=== PATIENT | male | born 1965 | race Caucasian/White ===

== ENCOUNTER 2016-11-23 08:43 | Observation (INO) | payer BC ==
--- NOTE | 2016-11-23 09:01 | PDOC ---
History of Present Illness - General Chief Complaint: CVA/TIA Stated Complaint: WEAKNESS X 1 DAY Time Seen by Provider: 11/23/16 09:01 History Source: Patient Exam Limitations: No Limitations - History of Present Illness Initial Comments: 50 yo M history EtOH abuse, hyperlipidemia presents with facial droop R face yesterday. He states that he was driving, felt a sudden change in the right side of his face. He states that he was able to move it, but his jaw felt different on the right side compared with the left. He also noted slurred speech , R arm numbness at the time. He states that he suspected that he had been drinking too much lately and did not thinking anything of it. However, when he arrived at work, his coworkers told him that his face was drooping on the right side and that he should seek evaluation. His face has improved since then, but he has persistent altered sensation to R arm. No difficulty walking. Speech has returned to baseline. NIH Stroke Scale - Last Known Well Date/Time & Onset Date Last Known Well: 11/22/16 - Initial Evaluation Level of consciousness: Alert Ask patient the month and their age: Answers both correctly Ask patient to open & close eyes; make fist and let go: Obeys both correctly Best gaze (horizontal eye movement): Normal Visual field testing: No visual field loss Facial paresis (Show teeth/raise eyebrows/close eyes tight): Normal symmetrical movement Motor Function: Left Arm: Normal Motor Function: Right Arm: Normal (extends arm 90 (or 45) degrees for 10 seconds without drift Motor Function: Left Leg: Normal (extends leg 30 degrees for 5 seconds without drift) Motor Function: Right Leg: Normal (extends leg 30 degrees for 5 seconds without drift) Limb Ataxia: No ataxia Sensory(Use pinprick test arms,legs,trunk,face/side to side): Normal Best language (Describe picture, name items, read sentences): No Aphasia Dysarthria (read several words): Normal articulation Extinction and Inattention: No abnormality - Total Score NIH Stroke Scale Score: 0 Past History - Past Medical History Allergies/Adverse Reactions: Allergies Allergy/AdvReac Type Severity Reaction Status Date / Time No Known Allergies Allergy Verified 11/23/16 08:47 Home Medications: Ambulatory Orders NK [No Known Home Medication] 12/29/15 Asthma: No COPD: No Diabetes: No HTN: No HIV: No Suicide Attempt (Hx): No Other medical history: MIGRAINES - Surgical History Abdominal Surgery: Yes Appendectomy: Yes - Immunization History Td Vaccination: Yes TDAP Vaccination: Yes Immunization Up to Date: Yes - Psycho/Social/Smoking Cessation Hx Anxiety: No Suicidal Ideation: No Smoking Status: Yes Smoking History: Former smoker Have you smoked in the past 12 months: No Number of Cigarettes Smoked Daily: 0 If you are a former smoker, when did you quit?: 26 YEARS AGO Information on smoking cessation initiated: No Hx Alcohol Use: No Drug/Substance Use Hx: No Substance Use Type: Alcohol Review of Systems - Review of Systems Able to Perform ROS?: Yes Comments:: GENERAL/CONSTITUTIONAL: No fever or chills. No weakness. HEAD, EYES, EARS, NOSE AND THROAT: No change in vision. No ear pain or discharge. No sore throat. CARDIOVASCULAR: No chest pain or shortness of breath. RESPIRATORY: No cough, wheezing, or hemoptysis. GASTROINTESTINAL: No nausea, vomiting, diarrhea or constipation. GENITOURINARY: No dysuria, frequency, or change in urination. MUSCULOSKELETAL: No joint or muscle swelling or pain. No neck or back pain. SKIN: No rash NEUROLOGIC: No headache, vertigo, loss of consciousness, or change in strength/ sensation. ENDOCRINE: No increased thirst. No abnormal weight change. HEMATOLOGIC/LYMPHATIC: No anemia, easy bleeding, or history of blood clots. ALLERGIC/IMMUNOLOGIC: No hives or skin allergy. *Physical Exam - Vital Signs Last Vital Signs Temp Pulse Resp BP Pulse Ox 98 F 90 18 145/90 100 11/23/16 08:45 11/23/16 08:45 11/23/16 08:45 11/23/16 08:45 11/23/16 08:45 - Physical Exam Comments: GENERAL: Awake, alert, and fully oriented, in no acute distress HEAD: No signs of trauma EYES: PERRLA, EOMI, sclera anicteric, conjunctiva clear ENT: Auricles normal inspection, hearing grossly normal, nares patent, oropharynx clear without exudates. Moist mucosa NECK: Normal ROM, supple, no lymphadenopathy, JVD, or masses LUNGS: Breath sounds equal, clear to auscultation bilaterally. No wheezes, and no crackles HEART: Regular rate and rhythm, normal S1 and S2, no murmurs, rubs or gallops ABDOMEN: Soft, nontender, normoactive bowel sounds. No guarding, no rebound. No masses EXTREMITIES: Normal range of motion, no edema. No clubbing or cyanosis. No cords, erythema, or tenderness NEUROLOGICAL: Cranial nerves II through XII grossly intact. RUE and RLE 4/5 strength. LUE and LLE 5/5 strength. Sensation intact. SKIN: Warm, Dry, normal turgor, no rashes or lesions noted. Heart Score/ECG Review - ECG Impressions Comment:: EKG read 09:53- NSR 81 bpm, no acute ST/T changes ED Treatment Course - LABORATORY CBC & Chemistry Diagram: 11/23/16 09:40 11/23/16 09:40 Medical Decision Making - Medical Decision Making NIHSS is 0, however, patient noted to have dec strength to RUE and RLE- 4/5. In light of his history of HL and EtOh abuse, will place on obs for TIA. *DC/Admit/Observation/Transfer Diagnosis at time of Disposition: TIA (transient ischemic attack) Qualifiers: Transient cerebral ischemia type: unspecified Qualified Code(s): G45.9 - Transient cerebral ischemic attack, unspecified - Discharge Dispostion Condition at time of disposition: Stable Admit: Yes
[2016-11-23 10:20] LABS: BASOPHIL 1.5 % (0-2.0); EOSINOPHIL 0.4 % (0-4.5); MCHC 34.4 g/dl (32.0-35.9); MEAN PLT VOLUME 9.4 fl (7.5-11.1); NEUTROPHILS 69.7 % (42.8-82.8); PLATELET COUNT 246 K/MM3 (134-434); WHITE BLOOD COUNT 8.3 K/mm3 (4.0-10.0)
[2016-11-23 10:21] LABS: PH,URINE 6.5 (4.5-8); URINE APPEARANCE Clear; URINE BILIRUBIN Negative (NEGATIVE); URINE BLOOD Negative (NEGATIVE); URINE GLUCOSE (UA) Negative (NEGATIVE); URINE KETONE Trace (NEGATIVE); URINE LEUK ESTERASE Negative (NEGATIVE); URINE NITRITE Negative (NEGATIVE); URINE PROTEIN Negative (NEGATIVE); URINE UROBILINOGEN 0.2 E.U/dl (0.2-1.0)
[2016-11-23 10:29] LABS: URINE COLOR YELLOW
[2016-11-23 10:57] LABS: INR 1.02 (0.82-1.09); PROTHROMBIN TIME (PATIENT) 11.4 SEC (10.2-13.0)
[2016-11-23 11:02] LABS: CPK(DFH) 148 IU/L (38-174)
[2016-11-23 11:08] LABS: ALBUMIN 3.9 g/dl (3.5-5.0); ALK PHOS 64 U/L (32-92); ANION GAP 7 (8-16); BILIRUBIN,TOTAL 0.5 mg/dl (0.2-1.0); CALCIUM 9.5 mg/dl (8.4-10.2); CHOLESTEROL 241 mg/dl; CO2 23 mmol/L (22-28); CREATININE 0.9 mg/dl (0.6-1.3); GLUCOSE,RANDOM 111 mg/dl (74-106); SGOT/AST 39 U/L (10-42); SGPT/ALT 26 U/L (10-40); TOT PROT 8.5 g/dl (6.4-8.3)
[2016-11-23 11:26] LABS: TROPONIN I (DFP) < 0.03 ng/ml (0.03-0.50)
[2016-11-23 12:03] LABS: URINE MARIJUANA THC NEGATIVE ng/ml (CUTOFF=50)
--- NOTE | 2016-11-23 12:21 | HP ---
[id number] a 50 y/o male with a past medical history of hyperlipidemia (self- discontinued medications), ocular migraines, and ETOH abuse. Patient reports yesterday, 11/22/16 at 0600 he was driving to work and developed right sided facial droop, slurred speech, paresthesia to the right side of face with presyncope. He reports pulling over on the road and felt slightly improved and continued to drive to work. He reports ongoing slurred speech with right sided facial droop, through out the day that slowly resolved. Upon awakening this Am , patient reports ongoing right upper and lower extremity weakness and sought evaluation in the emergency department. ER course was notable for: (1) ct of head no acute pathology (2) ekg nsr, normal axis Recent Travel: none PAST MEDICAL HISTORY: HLD, occular migraines PAST SURGICAL HISTORY: appendectomy, knee arthoscopy Social History: DPW, resides alone Smoking: none Alcohol: drinks 6-10 beer daily Drugs: none Family History: mother cva (alive) father prostate ca (alive) Allergies No Known Allergies Allergy (Verified 11/23/16 08:47) HOME MEDICATIONS: Home Medications Medication Instructions Recorded NK [No Known Home Medication] 12/29/15 REVIEW OF SYSTEMS CONSTITUTIONAL: Absent: fever, chills, diaphoresis, generalized weakness, malaise, loss of appetite, weight change HEENT: Absent: rhinorrhea, nasal congestion, throat pain, throat swelling, difficulty swallowing, mouth swelling, ear pain, eye pain, visual changes CARDIOVASCULAR: Absent: chest pain, syncope, palpitations, irregular heart rate, lightheadedness , peripheral edema RESPIRATORY: Absent: cough, shortness of breath, dyspnea with exertion, orthopnea, wheezing, stridor, hemoptysis GASTROINTESTINAL: Absent: abdominal pain, abdominal distension, nausea, vomiting, diarrhea, constipation, melena, hematochezia GENITOURINARY: Absent: dysuria, frequency, urgency, hesitancy, hematuria, flank pain, genital pain MUSCULOSKELETAL: Absent: myalgia, arthralgia, joint swelling, back pain, neck pain SKIN: Absent: rash, itching, pallor HEMATOLOGIC/IMMUNOLOGIC: Absent: easy bleeding, easy bruising, lymphadenopathy, frequent infections ENDOCRINE: Absent: unexplained weight gain, unexplained weight loss, heat intolerance, cold intolerance NEUROLOGIC: present: right upper and lower extremity weakness paresthesias Absent: headache, fo, dizziness, unsteady gait, seizure, mental status changes, bladder or bowel incontinence PSYCHIATRIC: Absent: anxiety, depression, suicidal or homicidal ideation, hallucinations. PHYSICAL EXAMINATION Vital Signs - 24 hr 11/23/16 08:45 Temperature 98 F Pulse Rate 90 Respiratory 18 Rate Blood Pressure 145/90 O2 Sat by Pulse 100 Oximetry (%) GENERAL: Awake, alert, and fully oriented, in no acute distress. HEAD: Normal with no signs of trauma. EYES: Pupils equal, round and reactive to light, extraocular movements intact, sclera anicteric, conjunctiva clear. No lid lag. EARS, NOSE, THROAT: Ears normal, nares patent, oropharynx clear without exudates. Moist mucous membranes. NECK: Normal range of motion, supple without lymphadenopathy, JVD, or masses. LUNGS: Breath sounds equal, clear to auscultation bilaterally. No wheezes, and no crackles. No accessory muscle use. HEART: Regular rate and rhythm, normal S1 and S2 without murmur, rub or gallop. ABDOMEN: Soft, nontender, not distended, normoactive bowel sounds, no guarding, no rebound, no masses. No hepatomegaly or splenomegaly. MUSCULOSKELETAL: Normal range of motion at all joints. No bony deformities or tenderness. No CVA tenderness. UPPER EXTREMITIES: 2+ pulses, warm, well-perfused. No cyanosis. No clubbing. No peripheral edema. 4/5 LOWER EXTREMITIES: 2+ pulses, warm, well-perfused. No calf tenderness. No peripheral edema. 4/5 NEUROLOGICAL: Cranial nerves II-XII intact. Normal speech. Normal gait. flattening or right nasal labial fold PSYCHIATRIC: Cooperative. Good eye contact. Appropriate mood and affect. SKIN: Warm, dry, normal turgor, no rashes or lesions noted, normal capillary refill. multiple tattoos to billateral arms, chest and back Laboratory Results - last 24 hr 11/23/16 11/23/16 11/23/16 09:40 09:40 09:40 WBC 8.3 RBC 4.56 Hgb 14.6 Hct 42.4 MCV 93.0 MCHC 34.4 RDW 14.0 Plt Count 246 MPV 9.4 Neutrophils % 69.7 Lymphocytes % 19.4 Monocytes % 9.0 Eosinophils % 0.4 Basophils % 1.5 INR 1.02 Sodium 133 L Potassium 4.5 Chloride 103 Carbon Dioxide 23 Anion Gap 7 L BUN 18 Creatinine 0.9 Creat Clearance w eGFR > 60 Random Glucose 111 H Calcium 9.5 Total Bilirubin 0.5 AST 39 ALT 26 Alkaline Phosphatase 64 Creatine Kinase Troponin I Total Protein 8.5 H Albumin 3.9 Triglycerides 103 Cholesterol 241 Total LDL Cholesterol 143 HDL Cholesterol 77 Urine Color Urine Appearance Urine pH Ur Specific [place] Urine Protein Urine Glucose (UA) Urine Ketones Urine Blood Urine Nitrite Urine Bilirubin Urine Urobilinogen Ur Leukocyte Esterase Opiates Screen Methadone Screen Barbiturate Screen Phencyclidine Screen Ur Amphetamines Screen MDMA (Ecstasy) Screen Benzodiazepines Screen Cocaine Screen U Marijuana (THC) Screen Alcohol, Quantitative 11/23/16 11/23/16 11/23/16 09:40 09:40 09:40 WBC RBC Hgb Hct MCV MCHC RDW Plt Count MPV Neutrophils % Lymphocytes % Monocytes % Eosinophils % Basophils % INR Sodium Potassium Chloride Carbon Dioxide Anion Gap BUN Creatinine Creat Clearance w eGFR Random Glucose Calcium Total Bilirubin AST ALT Alkaline Phosphatase Creatine Kinase 148 Troponin I < 0.03 L Total Protein Albumin Triglycerides Cholesterol Total LDL Cholesterol HDL Cholesterol Urine Color Urine Appearance Urine pH Ur Specific [place] Urine Protein Urine Glucose (UA) Urine Ketones Urine Blood Urine Nitrite Urine Bilirubin Urine Urobilinogen Ur Leukocyte Esterase Opiates Screen Negative Methadone Screen Negative Barbiturate Screen Negative Phencyclidine Screen Negative Ur Amphetamines Screen Negative MDMA (Ecstasy) Screen Negative Benzodiazepines Screen Negative Cocaine Screen Negative U Marijuana (THC) Screen Negative Alcohol, Quantitative < 5.0 11/23/16 09:45 WBC RBC Hgb Hct MCV MCHC RDW Plt Count MPV Neutrophils % Lymphocytes % Monocytes % Eosinophils % Basophils % INR Sodium Potassium Chloride Carbon Dioxide Anion Gap BUN Creatinine Creat Clearance w eGFR Random Glucose Calcium Total Bilirubin AST ALT Alkaline Phosphatase Creatine Kinase Troponin I Total Protein Albumin Triglycerides Cholesterol Total LDL Cholesterol HDL Cholesterol Urine Color Yellow Urine Appearance Clear Urine pH 6.5 Ur Specific [place] 1.025 Urine Protein Negative Urine Glucose (UA) Negative Urine Ketones Trace Urine Blood Negative Urine Nitrite Negative Urine Bilirubin Negative Urine Urobilinogen 0.2 e.u/dl Ur Leukocyte Esterase Negative Opiates Screen Methadone Screen Barbiturate Screen Phencyclidine Screen Ur Amphetamines Screen MDMA (Ecstasy) Screen Benzodiazepines Screen Cocaine Screen U Marijuana (THC) Screen Alcohol, Quantitative ASSESSMENT/PLAN: 1) neuro: r/o cva vs tia - pending mri of brain, echo, and carotid doppler - start asa and lipitor - continous cardiac monitoring - serial neuro assessment - appreciate neurology input 2) card hyperlipidemia - pt reports self discontinuing statin, will restart presyncopal episode - pending echo and carotid doppler - continuous cardiac monitoring 3) psych:etoh - pt reports drinking 6-10 beer daily, no signs of withdrawl noted on exam - prn librium f/e/n - low cholesterol diet ppx -oob - zantac dispo: requires less than 2mn telemetry observation. full code Problem List - Problem (1) Hyperlipidemia Code(s): E78.5 - HYPERLIPIDEMIA, UNSPECIFIED (2) TIA (transient ischemic attack) Code(s): G45.9 - TRANSIENT CEREBRAL ISCHEMIC ATTACK, UNSPECIFIED Qualifiers: Transient cerebral ischemia type: unspecified Qualified Code(s): G45.9 - Transient cerebral ischemic attack, unspecified (3) EtOH dependence Code(s): F10.20 - ALCOHOL DEPENDENCE, UNCOMPLICATED Qualifiers: Substance use status: uncomplicated Qualified Code(s): F10.20 - Alcohol dependence, uncomplicated Visit type - Emergency Visit Emergency Visit: Yes ED Registration Date: 11/23/16 Care time: The patient presented to the Emergency Department on the above date and was hospitalized for further evaluation of their emergent condition. - New Patient This patient is new to me today: Yes Date on this admission: 11/23/16 - Critical Care Critical Care patient: Yes Total Critical Care Time (in minutes): 45 Critical Care Statement: The care of this patient involved high complexity decision making to prevent further life threatening deterioration of the patient 's condition and/or to evalute & treat vital organ system(s) failure or risk of failure.
[2016-11-23 12:22] VITALS: PULSE 81
[2016-11-23] MEDS ORDERED: ASPIRIN 325 MG ENTERIC COATED TABLET (FP) PO SCH (12:30)
[2016-11-23] MEDS ORDERED: ASPIRIN 325 MG TABLET ONE (12:40)
[2016-11-23] MEDS ORDERED: chlordiazePOXIDE HCL 25 MG CAPSULE PO PRN (14:12)
[2016-11-23 14:13] VITALS: BMI 58.5
[2016-11-23 14:20] VITALS: BP 148/83; TEMP 98.9
[2016-11-23 17:53] LABS: CPK(DFH) 106 IU/L (38-174)
[2016-11-23 18:06] LABS: TROPONIN I (DFP) < 0.03 ng/ml (0.03-0.50)
--- NOTE | 2016-11-23 18:17 | CONSULT ---
Admitting History and Physical - Primary Care Physician PCP: Mikaela Reeves - Admission History of Present Illness: Per EMR: "HISTORY OF PRESENT ILLNESS: patient is a 50 y/o male with a past medical history of hyperlipidemia (self- discontinued medications), ocular migraines, and ETOH abuse. Patient reports yesterday, 11/22/16 at 0600 he was driving to work and developed right sided facial droop, slurred speech, paresthesia to the right side of face with presyncope. He reports pulling over on the road and felt slightly improved and continued to drive to work. He reports ongoing slurred speech with right sided facial droop, through out the day that slowly resolved. Upon awakening this Am , patient reports ongoing right upper and lower extremity weakness and sought evaluation in the emergency department. ER course was notable for: (1) ct of head no acute pathology (2) ekg nsr, normal axis " Pt reported feeling like he was going to pass out while driving. He reported pulling/droop of right face and slurred speech, and tingling in right arm. History Source: Patient Limitations to Obtaining History: No Limitations - Advance Directives Advance Directives: Yes: Living Will - Smoking History Smoking history: Former smoker Have you smoked in the past 12 months: No Aproximately how many cigarettes per day: 0 If you are a former smoker, when did you quit?: 26 YEARS AGO - Social History ADL: Independent History - Admission Reason For Visit: TIA - Diagnostics X-ray: Report Reviewed CT Scan: Report Reviewed ((-)) MRI: Report Reviewed ((-)) - General Mental Status: Alert and Oriented, Awake and Alert, Able to Follow Commands Attention: Intact Ability to Follow Directions: Excellent Head/Neck Control: WFL - Hearing Hearing: Normal Hearing Aide: No With Patient: No Speech Evaluation - Communication Primary Language: SERBIAN Communication: Yes: Within Normal Limits Oral Expression Ability: Yes: No Impairment - Speech Production Able to Make Needs Known: Yes: WNL Intelligibility: Yes: WNL - Speech Characteristics Voice Loudness: Normal Voice Pitch: Yes: Normal Voice Phonatory-based Quality: Yes: Normal Speech Pattern: Normal Speech Clarity: < 100% Nasal Resonance: Normal Articulation: Yes: Precise Rate of Speech: Intact - Language/Auditory Comprehension Follows: Yes: 2 Stage Simple Commands - Language/Verbal Expression Able to Respond to Simple Queries: Yes: WNL Able to Communicate Wants and Needs: Yes: WNL Functional Communication Status: Yes: WNL - Memory/Perception senior living Memory: Yes: WNL Short Term Memory: Yes: WNL - Swallow Evaluation/Bedside Assessment Current Nutritional Intake: Regular, Thin Liquids Oral Secretions: Yes: WFL Dentition: Yes: Adequate Facial Symmetry at Rest: Symmetrical Facial Symmetry on Retraction: Symmetrical Facial Movement: Controlled Sensation: Normal Against Resistance Opening: Normal Against Resistance Closing: Normal Pucker Lips: Normal Smile: Normal Lingual Movement: Normal Lingual Speed of Movement: Normal Lingual Movement Strgth Against Opposition: Normal Lingual Movement Characteristics: Normal Velopharyngeal Movement: Normal Laryngeal Elevation: WFL Laryngeal Movement: Able to Palpate Rate of Intake: WFL Bolus Size: WFL Labial Seal: WFL Chewing: WFL Oral Prep Time: WFL A-P Transit: WFL Pocketing: None Timing of Swallow: WFL Coughing/Throat Clear: No Change in Voice: No Recommendations - Speech Evaluation, Impression/Plan Impression: Speech,swallowing,cognition intact. Pt reports a h/o occular migraines, with recent increase in severity, untreated. R/o TIA vs Migraine - Dysphagia Impressions/Plan Swallowing Skills: Impaired Recommendations: Neuro Consult - Recommendations Diet Consistency: Regular Liquids: Thin Liquids
--- NOTE | 2016-11-23 21:41 | HOSP ---
Subjective - Review of Symptoms Events since last encounter: Hospitalist Encounter Notified by RN that the patient is refusing further medical care and treatment. Arrived to bedside, patient is alert, awake and oriented. Patient is requesting to know the results of his diagnostic tests, and that he wants to leave. Discussed report findings with the patient. Attempted to convince the patient to stay overnight for observation, patient adamantly refused. PE performed see PE notes No neurological deficits noted. VS: T 98.5, P 74, R 18, BP 153/91, Spo2 99% Patient signed AMA, risks and dangers discussed, patient verbalized understanding. Patient advised to f/u with PMD, Dr. Paredes. Lipitor Rx transmitted to pharmacy. Patient advised to take Baby Asa EC. Patient advised to return to the nearest ED if symptoms return or condition worsens. Physical Examination Vital Signs: Vital Signs Temperature 98.9 F 11/23/16 14:19 Pulse Rate 81 11/23/16 14:19 Respiratory Rate 18 11/23/16 14:19 Blood Pressure 148/83 11/23/16 14:19 O2 Sat by Pulse Oximetry (%) 100 11/23/16 12:21 Constitutional: Yes: Well Nourished, Anxious Eyes: Yes: WNL, Conjunctiva Clear, EOM Intact, PERRL HENT: Yes: WNL, Atraumatic, Normocephalic Neck: Yes: WNL, Supple, Trachea Midline Cardiovascular: Yes: WNL, Regular Rate and Rhythm, S1, S2 Respiratory: Yes: WNL, Regular, CTA Bilaterally Gastrointestinal: Yes: WNL, Normal Bowel Sounds, Soft Musculoskeletal: Yes: WNL Extremities: Yes: WNL Edema: No Peripheral Pulses WNL: Yes Integumentary: Yes: WNL, Tattoos Neurological: Yes: WNL, Alert, Oriented, Cran Nerves II-XII Intact ...Motor Strength: WNL, LUE, LLE, RUE, RLE Psychiatric: Yes: Alert, Oriented, Agitated Labs: Laboratory Results - last 24 hr 11/23/16 11/23/16 11/23/16 09:40 09:40 09:40 WBC 8.3 RBC 4.56 Hgb 14.6 Hct 42.4 MCV 93.0 MCHC 34.4 RDW 14.0 Plt Count 246 MPV 9.4 Neutrophils % 69.7 Lymphocytes % 19.4 Monocytes % 9.0 Eosinophils % 0.4 Basophils % 1.5 INR 1.02 Sodium 133 L Potassium 4.5 Chloride 103 Carbon Dioxide 23 Anion Gap 7 L BUN 18 Creatinine 0.9 Creat Clearance w eGFR > 60 POC Glucometer Random Glucose 111 H Calcium 9.5 Total Bilirubin 0.5 AST 39 ALT 26 Alkaline Phosphatase 64 Creatine Kinase Troponin I Total Protein 8.5 H Albumin 3.9 Triglycerides 103 Cholesterol 241 Total LDL Cholesterol 143 HDL Cholesterol 77 Vitamin B12 Urine Color Urine Appearance Urine pH Ur Specific [place] Urine Protein Urine Glucose (UA) Urine Ketones Urine Blood Urine Nitrite Urine Bilirubin Urine Urobilinogen Ur Leukocyte Esterase Opiates Screen Methadone Screen Barbiturate Screen Phencyclidine Screen Ur Amphetamines Screen MDMA (Ecstasy) Screen Benzodiazepines Screen Cocaine Screen U Marijuana (THC) Screen Alcohol, Quantitative 11/23/16 11/23/16 11/23/16 09:40 09:40 09:40 WBC RBC Hgb Hct MCV MCHC RDW Plt Count MPV Neutrophils % Lymphocytes % Monocytes % Eosinophils % Basophils % INR Sodium Potassium Chloride Carbon Dioxide Anion Gap BUN Creatinine Creat Clearance w eGFR POC Glucometer Random Glucose Calcium Total Bilirubin AST ALT Alkaline Phosphatase Creatine Kinase 148 Troponin I < 0.03 L Total Protein Albumin Triglycerides Cholesterol Total LDL Cholesterol HDL Cholesterol Vitamin B12 Urine Color Urine Appearance Urine pH Ur Specific [place] Urine Protein Urine Glucose (UA) Urine Ketones Urine Blood Urine Nitrite Urine Bilirubin Urine Urobilinogen Ur Leukocyte Esterase Opiates Screen Negative Methadone Screen Negative Barbiturate Screen Negative Phencyclidine Screen Negative Ur Amphetamines Screen Negative MDMA (Ecstasy) Screen Negative Benzodiazepines Screen Negative Cocaine Screen Negative U Marijuana (THC) Screen Negative Alcohol, Quantitative < 5.0 11/23/16 11/23/16 11/23/16 09:45 16:43 17:25 WBC RBC Hgb Hct MCV MCHC RDW Plt Count MPV Neutrophils % Lymphocytes % Monocytes % Eosinophils % Basophils % INR Sodium Potassium Chloride Carbon Dioxide Anion Gap BUN Creatinine Creat Clearance w eGFR POC Glucometer 118 Random Glucose Calcium Total Bilirubin AST ALT Alkaline Phosphatase Creatine Kinase 106 Troponin I < 0.03 L Total Protein Albumin Triglycerides Cholesterol Total LDL Cholesterol HDL Cholesterol Vitamin B12 Urine Color Yellow Urine Appearance Clear Urine pH 6.5 Ur Specific [place] 1.025 Urine Protein Negative Urine Glucose (UA) Negative Urine Ketones Trace Urine Blood Negative Urine Nitrite Negative Urine Bilirubin Negative Urine Urobilinogen 0.2 e.u/dl Ur Leukocyte Esterase Negative Opiates Screen Methadone Screen Barbiturate Screen Phencyclidine Screen Ur Amphetamines Screen MDMA (Ecstasy) Screen Benzodiazepines Screen Cocaine Screen U Marijuana (THC) Screen Alcohol, Quantitative 11/23/16 17:25 WBC RBC Hgb Hct MCV MCHC RDW Plt Count MPV Neutrophils % Lymphocytes % Monocytes % Eosinophils % Basophils % INR Sodium Potassium Chloride Carbon Dioxide Anion Gap BUN Creatinine Creat Clearance w eGFR POC Glucometer Random Glucose Calcium Total Bilirubin AST ALT Alkaline Phosphatase Creatine Kinase Troponin I Total Protein Albumin Triglycerides Cholesterol Total LDL Cholesterol HDL Cholesterol Vitamin B12 551 Urine Color Urine Appearance Urine pH Ur Specific [place] Urine Protein Urine Glucose (UA) Urine Ketones Urine Blood Urine Nitrite Urine Bilirubin Urine Urobilinogen Ur Leukocyte Esterase Opiates Screen Methadone Screen Barbiturate Screen Phencyclidine Screen Ur Amphetamines Screen MDMA (Ecstasy) Screen Benzodiazepines Screen Cocaine Screen U Marijuana (THC) Screen Alcohol, Quantitative Intake & Output 11/20/16 11/21/16 11/22/16 11/23/16 23:59 23:59 23:59 23:59 Intake Total 550 Balance 550 Weight 185 kg Current Medications Generic Name Dose Route Start Last Admin Trade Name Freq PRN Reason Stop Dose Admin Aspirin 325 mg 11/23/16 12:30 11/23/16 12:42 Ecotrin - PO 325 mg DAILY BELÉN Administration Atorvastatin Calcium 10 mg 11/23/16 22:00 Lipitor - PO HS BELÉN Chlordiazepoxide HCl 25 mg 11/23/16 14:12 Librium - PO Q6H PRN WITHDRAWAL(CONT SUBST)
[2016-11-23] MEDS ORDERED: ATORVASTATIN CA 10 MG TABLET (FP) PO SCH (22:00)
--- NOTE | 2016-11-26 20:38 | EKG ---
Test Reason : Blood Pressure : / mmHG Vent. Rate : 085 BPM Atrial Rate : 085 BPM P-R Int : 166 ms QRS Dur : 084 ms QT Int : 366 ms P-R-T Axes : 042 072 025 degrees QTc Int : 435 ms POOR DATA QUALITY, INTERPRETATION MAY BE ADVERSELY AFFECTED NORMAL SINUS RHYTHM WHEN COMPARED WITH ECG OF 29-DEC-2015 11:33, NO SIGNIFICANT CHANGE WAS FOUND Confirmed by MD MAX, DARION ([id number]) on 11/26/2016 8:37:41 PM Referred By: NUPUR Confirmed By:DARION SANTANA MD
== END 2016-11-23 21:10 | disposition left against medical advice (07) ==
LOC: FER 08:43 → FM/S 12:09
PROVIDERS: ADMIT Internal Medicine; ATTEND Nurse Practitioner Acute Care
DX: G45.8 Other transient cerebral ischemic attacks and related syndromes (principal); E78.5 Hyperlipidemia, unspecified; G43.809 Other migraine, not intractable, without status migrainosus; F10.20 Alcohol dependence, uncomplicated
CPT/HCPCS: 36415; 70450-TC; 70551-TC; 80053; 80061; 80307; 81003; 82550; 82607; 84484; 85025; 85610; 93005; 93306-TC; 93880-TC; 99285-25; G0378

== ENCOUNTER 2017-07-01 06:32 | Emergency (ER) | payer BC ==
[2017-07-01 07:02] VITALS: BP 159/105; PULSE 83; TEMP 97.9; BMI 26.5
[2017-07-01] MEDS ORDERED: DOXYCYCLINE HYCLATE 100 MG CAPSULE PO ONE (07:18)
--- NOTE | 2017-07-01 07:18 | PDOC ---
History of Present Illness - General Chief Complaint: Bite Stated Complaint: TICK IN BACK Time Seen by Provider: 07/01/17 07:09 History Source: Patient Exam Limitations: No Limitations - History of Present Illness Initial Comments: 07/01/17 07:13 The patient is a 51M with a PMH of HLD who presents to the ED after sustaining a tick bite to the upper R shoulder. The patient states that he is unsure if he took out the entire tick. He denies fever, chills, nausea, and vomiting. Past History - Past Medical History Allergies/Adverse Reactions: Allergies Allergy/AdvReac Type Severity Reaction Status Date / Time No Known Allergies Allergy Verified 07/01/17 06:59 Home Medications: Ambulatory Orders NK [No Known Home Medication] 07/01/17 Asthma: No COPD: No Diabetes: No HTN: No Other medical history: Pt denies - Surgical History Abdominal Surgery: Yes Appendectomy: Yes - Immunization History Td Vaccination: Yes TDAP Vaccination: Yes Immunization Up to Date: Yes - Suicide/Smoking/Psychosocial Hx Smoking Status: Yes Smoking History: Never smoked Have you smoked in the past 12 months: No Number of Cigarettes Smoked Daily: 0 If you are a former smoker, when did you quit?: 26 YEARS AGO Information on smoking cessation initiated: No Hx Alcohol Use: Yes (Beer) Drug/Substance Use Hx: No Substance Use Type: Alcohol Review of Systems - Review of Systems Able to Perform ROS?: Yes Is the patient limited Kiswahili proficient: No Constitutional: No: Chills, Fever HEENTM: No: Eye Pain, Double Vision Respiratory: No: Cough, Shortness of Breath Cardiac (ROS): No: Chest Pain, Palpitations ABD/GI: No: Nausea, Vomiting : No: Burning, Dysuria Musculoskeletal: No: Muscle Pain, Muscle Weakness Integumentary: Yes: Rash (Tick bite to R upper shoulder). No: Bruising, Dryness Neurological: No: Headache, Numbness, Tingling, Weakness Psychiatric: No: Sleep Pattern Change, Change in Appetite *Physical Exam - Vital Signs Last Vital Signs Temp Pulse Resp BP Pulse Ox 97.9 F 83 18 159/105 100 07/01/17 06:59 07/01/17 06:59 07/01/17 06:59 07/01/17 06:59 07/01/17 06:59 - Physical Exam General Appearance: Yes: Nourished, Appropriately Dressed. No: Apparent Distress HEENT: positive: Normal Voice, Hearing Grossly Normal Respiratory/Chest: positive: Lungs Clear, Normal Breath Sounds. negative: Chest Tender Cardiovascular: positive: Regular Rhythm, Regular Rate, S1, S2. negative: Diastolic Murmur, Systolic Murmur Gastrointestinal/Abdominal: positive: Flat, Soft. negative: Tender Extremity: positive: Normal Inspection, Normal Range of Motion. negative: Swelling, Calf Tenderness Integumentary: positive: Dry, Warm, Other (.3cm cured tick bite without any presence of tick head, body, or legs) Neurologic: positive: Fully Oriented, Alert, Normal Mood/Affect, Motor Strength 5/5 Medical Decision Making - Medical Decision Making 07/01/17 07:19 The patient is a 51M with a PMH of HLD who presents to the ED with a tick bite. I saw no pieces of the tick in the bite and the bite looks like it is healing. I will prescribe 200mg of doxycycline as lyme prophylaxis. Will d/c patient with instructions about lyme disease. *DC/Admit/Observation/Transfer Diagnosis at time of Disposition: Tick bite Qualifiers: Encounter type: initial encounter Qualified Code(s): W57.XXXA - Bitten or stung by nonvenomous insect and other nonvenomous arthropods, initial encounter - Discharge Dispostion Disposition: HOME Condition at time of disposition: Stable Admit: No - Referrals Referrals: Cristobal Reyna MD [Primary Care Provider] - - Patient Instructions Printed Discharge Instructions: DI for Insect Bites and Stings, How to Remove a Tick Additional Instructions: Please return to the ER if symptoms progress, worsen, or new symptoms arise. Please follow up with your primary care doctor in 2-3 days. Please return to the ER or go to your primary care doctor's office if you start experiencing numbness, tingling, weakness, fever, chills, nausea, or vomiting. Please monitor this rash to make sure it does not worsen.
--- NOTE | 2017-07-01 07:29 | PDOC ---
Attending Attestation - Resident Resident Name: Juanito Avendaño - ED Attending Attestation I have performed the following: I have examined & evaluated the patient, The case was reviewed & discussed with the resident, I agree w/resident's findings & plan, Exceptions are as noted - HPI HPI: 07/01/17 07:26 Revmoved Tic intact yesterday from right shoulderblade - Physicial Exam PE: 07/01/17 07:26 No residual tic material - Medical Decision Making 07/01/17 07:[address] Avendaño's Assessment and plan
== END 2017-07-01 07:46 | disposition home or self-care (01) ==
LOC: JER 06:32
DX: S40.261A Insect bite (nonvenomous) of right shoulder, initial encounter (principal); W57.XXXA Bitten or stung by nonvenomous insect and other nonvenomous arthropods, initial encounter; Y93.89 Activity, other specified; Y92.89 Other specified places as the place of occurrence of the external cause; Y99.8 Other external cause status; E78.00 Pure hypercholesterolemia, unspecified
CPT/HCPCS: 99281-25

== ENCOUNTER 2017-10-16 09:24 | Emergency (ER) | payer OTHER, BC ==
[2017-10-16 09:35] VITALS: BP 141/90; PULSE 77; TEMP 98.6; BMI 28.0
[2017-10-16] MEDS ORDERED: IBUPROFEN 600 MG TABLET (FP) PO ONE ×2 (09:57)
--- NOTE | 2017-10-16 10:22 | PDOC ---
History of Present Illness - General Chief Complaint: Injury Stated Complaint: FALL (WORK RELATED) Time Seen by Provider: 10/16/17 09:53 History Source: Patient Exam Limitations: No Limitations - History of Present Illness Initial Comments: 10/16/17 10:46 51 yr male slipped and fell on the truck at work injured his left elbow, right shoulder and right elbow no head trauma no dizzyness has FROM of the arm , with pain on abduction to the right shoulder Past History - Past Medical History Allergies/Adverse Reactions: Allergies Allergy/AdvReac Type Severity Reaction Status Date / Time No Known Allergies Allergy Verified 10/16/17 09:35 Home Medications: Ambulatory Orders NK [No Known Home Medication] 07/01/17 Asthma: No COPD: No Diabetes: No HTN: No - Surgical History Abdominal Surgery: Yes Appendectomy: Yes - Immunization History Td Vaccination: Yes TDAP Vaccination: Yes Immunization Up to Date: Yes - Suicide/Smoking/Psychosocial Hx Smoking Status: Yes Smoking History: Never smoked Have you smoked in the past 12 months: No Number of Cigarettes Smoked Daily: 0 If you are a former smoker, when did you quit?: 26 YEARS AGO Information on smoking cessation initiated: No Hx Alcohol Use: No Drug/Substance Use Hx: No Substance Use Type: Alcohol *Physical Exam - Vital Signs Last Vital Signs Temp Pulse Resp BP Pulse Ox 98.6 F 77 19 141/90 100 10/16/17 09:33 10/16/17 09:33 10/16/17 09:33 10/16/17 09:33 10/16/17 09:33 - Physical Exam General Appearance: Yes: Nourished, Appropriately Dressed HEENT: positive: EOMI, ANU Neck: positive: Supple Respiratory/Chest: positive: Lungs Clear, Normal Breath Sounds. negative: Chest Tender Cardiovascular: positive: Regular Rhythm, Regular Rate Gastrointestinal/Abdominal: positive: Normal Bowel Sounds, Soft Musculoskeletal: positive: Normal Inspection Extremity: positive: Normal Capillary Refill, Normal Inspection, Normal Range of Motion, Tender (no bony tenderness to left and right and shoulders bilaterally ) Integumentary: positive: Normal Color, Dry, Warm Neurologic: positive: Fully Oriented, Alert, Normal Mood/Affect, Normal Response , Motor Strength 5/5 Procedures - Splinting Pre-Proc Neuro Vasc Exam: normal Progress: 10/16/17 11:02 sling ED Treatment Course - RADIOLOGY Radiology Studies Ordered: Category Date Time Status ELBOW-LEFT [RAD] Stat Radiology 10/16/17 09:47 Taken ELBOW-RIGHT [RAD] Stat Radiology 10/16/17 10:08 Taken SHOULDER-RIGHT [RAD] Stat Radiology 10/16/17 09:47 Taken - Medications Given in the ED: ED Medications Discontinued Medications Generic Name Dose Route Start Last Admin Trade Name Gloria PRN Reason Stop Dose Admin Ibuprofen 600 mg 10/16/17 09:57 10/16/17 10:02 Motrin - PO 10/16/17 09:58 600 mg ONCE ONE Administration Medical Decision Making - Medical Decision Making 10/16/17 10:50 cc: slip and fall on the truck at work pulled right shoulder and landed on left elbow, pt has pain to the left and right elbows and the right shoulder no other injury pt is ambulating freely no distress, has FROM of the elbows bilateraly without any bony tenderness pt has limited ROM to the right shoulder due to pain, no deformity or crepitus nv intact to both upper extremities 10/16/17 10:59 *DC/Admit/Observation/Transfer Diagnosis at time of Disposition: Contusion, shoulder /upper arm - Discharge Dispostion Disposition: HOME Condition at time of disposition: Good - Referrals Referrals: Nishi Meyer [Primary Care Provider] - Jak Pierre MD [Staff Physician] - - Patient Instructions Additional Instructions: follow with the orthopedist or your primary care doctor next week take motrin 600mg every 8hrs for pain use the sling while awake remove to sleep and bathe apply ice to the areas of pain every 2hrs for 15 minutes for the next 2 days while awake - Post Discharge Activity Forms/Work/School Notes: Back to Work
== END 2017-10-16 11:09 | disposition home or self-care (01) ==
LOC: JERFT 09:24
DX: S40.011A Contusion of right shoulder, initial encounter (principal); W17.89XA Other fall from one level to another, initial encounter; Y93.89 Activity, other specified; Y92.9 Unspecified place or not applicable; Y99.0 Civilian activity done for income or pay; S40.021A Contusion of right upper arm, initial encounter; Z87.891 Personal history of nicotine dependence
CPT/HCPCS: 73030-TC-RT-FY; 73070-TC-LT-FY; 73070-TC-RT-FY; 99281-25

== ENCOUNTER 2019-02-24 09:49 | Emergency (ER) | payer BC, OTHER | END 2019-02-24 11:18 | disposition home or self-care (01) | LOC: JERFT 09:49 ==

== ENCOUNTER 2019-05-05 07:52 | Emergency (ER) | payer BC ==
[2019-05-05 08:00] VITALS: BP 165/93; PULSE 76; TEMP 98.2; BMI 28.0
--- NOTE | 2019-05-05 08:06 | PDOC ---
History of Present Illness - General Chief Complaint: Rash Stated Complaint: RASH Time Seen by Provider: 05/05/19 08:05 - History of Present Illness Initial Comments: 05/05/19 08:32 HPI: 53 y/o M with hx of HLD, rosacea and TIA presenting with 1 day of left hand swelling and erythema. He states he was doing some cleaning yesterday around his car when he thinks something bit him. Initially it was pruritic but this morning he woke up with left the dorsal surface of his hand with swelling ranging from the DIP to his wrist associated with mild change in sensation compared to the right hand. He reports mild pain 4-5/10 but only present when making a fist; he did not require pain control at home. He reports FROM. Patient denies fever, chills, drainage, focal weakness PMHx: as noted above ROS: as noted SHx: Denies tobacco and rec drugs. With occasional alcohol use Allergies: NKDA 05/05/19 10:34 Paimelba also complains of his rosacea breaking out over the past couple months with pustular lesions. no pain. has used old prescription of steroid ointment, but no improvement. no change in vision, facial weakness, droop. Past History - Past Medical History Allergies/Adverse Reactions: Allergies Allergy/AdvReac Type Severity Reaction Status Date / Time No Known Allergies Allergy Verified 05/05/19 08:00 Home Medications: Ambulatory Orders Amox-Tr/K Cl [Augmentin - 875Mg Tablet] 1 tab PO BID #13 tablet 05/05/19 Diphenhydramine HCl [Benadryl -] 25 mg PO Q6H #21 capsule 05/05/19 Asthma: No COPD: No Diabetes: No HTN: No - Surgical History Abdominal Surgery: Yes Appendectomy: Yes - Immunization History Td Vaccination: Yes TDAP Vaccination: Yes Immunization Up to Date: Yes - Suicide/Smoking/Psychosocial Hx Smoking Status: Yes Smoking History: Never smoked Have you smoked in the past 12 months: No Number of Cigarettes Smoked Daily: 0 If you are a former smoker, when did you quit?: 26 YEARS AGO Hx Alcohol Use: No Drug/Substance Use Hx: No Substance Use Type: Alcohol Review of Systems - Review of Systems Comments:: 05/05/19 09:59 ROS: GENERAL/CONSTITUTIONAL: No fever or chills. No weakness. HEAD, EYES, EARS, NOSE AND THROAT: No change in vision. No ear pain or discharge. No sore throat. CARDIOVASCULAR: No chest pain or shortness of breath RESPIRATORY: No cough, wheezing, or hemoptysis. GASTROINTESTINAL: No nausea, vomiting, diarrhea or constipation. GENITOURINARY: No dysuria, frequency, or change in urination. MUSCULOSKELETAL: No neck or back pain. SKIN: +rash NEUROLOGIC: No headache, vertigo, loss of consciousness, or change in strength/ sensation. ENDOCRINE: No increased thirst. No abnormal weight change HEMATOLOGIC/LYMPHATIC: No anemia, easy bleeding, or history of blood clots. ALLERGIC/IMMUNOLOGIC: No hives or skin allergy. *Physical Exam - Vital Signs Last Vital Signs Temp Pulse Resp BP Pulse Ox 98.2 F 76 18 165/93 100 05/05/19 07:57 05/05/19 07:57 05/05/19 07:57 05/05/19 07:57 05/05/19 07:57 - Physical Exam Comments: 05/05/19 10:00 GENERAL: Awake, alert, and fully oriented, in no acute distress HEAD: No signs of trauma, normocephalic, atraumatic EYES: PERRLA, EOMI, sclera anicteric, conjunctiva clear ENT: Auricles normal inspection, hearing grossly normal, nares patent, oropharynx clear without exudates. Moist mucosa NECK: Normal ROM, supple, no lymphadenopathy, JVD, or masses LUNGS: No distress, speaks full sentences, clear to auscultation bilaterally HEART: Regular rate and rhythm, normal S1 and S2, no murmurs, rubs or gallops, peripheral pulses normal and equal bilaterally. ABDOMEN: Soft, nontender, normoactive bowel sounds. No guarding, no rebound. No masses EXTREMITIES : Left hand with nonpitting edema and blanching erythema from DIP to wrist; 2+ radial, ulnar, brachial pulses; sensation intact; 5/5 str hand sorter upholstery parts , interosseous muscles, flexors and extensors; warmth to palpation NEUROLOGICAL: Cranial nerves II through XII grossly intact. Normal speech, normal gait, no focal sensorimotor deficits SKIN: see extremities Medical Decision Making - Medical Decision Making 05/05/19 10:02 53 y/o M with hx of HLD and TIA presenting with 1 day of left hand swelling and erythema. Vitals notable for elevated BP, but no fever and normal HR. PE notable for demarcated erythema on dorsal left hand associated with edema. Concerns include allergic reaction vs cellulitis. Compartments soft with FROM, no weakness, no proximal streaking and negative kanavels sign. will treat empirically with 7 day course of augmentin for MRSA coverage benadryl for local reaction and recommending ice and elevate will recommend derm referral for complaints of rosacea breakout return pcxns given and patient comfortable with DC *DC/Admit/Observation/Transfer Diagnosis at time of Disposition: Rash Hand swelling Qualifiers: Laterality: left Qualified Code(s): M79.89 - Other specified soft tissue disorders - Discharge Dispostion Disposition: HOME Condition at time of disposition: Stable Decision to Admit order: No - Prescriptions Prescriptions: Amox-Tr/K Cl [Augmentin - 875Mg Tablet] 1 tab PO BID #13 tablet Diphenhydramine HCl [Benadryl -] 25 mg PO Q6H #21 capsule - Referrals Referrals: Saba Mancera MD [Staff Physician] - - Patient Instructions Printed Discharge Instructions: DI for Cellulitis -- Adult, DI for General Allergic Reactions Additional Instructions: Additional Instructions: Please return to the emergency department with any new or worsening symptoms or concerns including worsening redness or swellness. Please follow up with your primary care physician within 72 hours. Take medications prescribed benadryl every 4-6hrs and antibiotics for 7days Ice and elevate left hand Followup with PCP for left hand and with derm for rosacea - Post Discharge Activity
[2019-05-05] MEDS ORDERED: AMOX TR/POT CLAV 875MG/125MG TABLETS (FP) PO ONE (08:47)
[2019-05-05] MEDS ORDERED: AMOX TR/POT CLAV 875MG/125MG TABLETS (FP) ONE (08:52)
--- NOTE | 2019-05-05 09:42 | PDOC ---
Attending Attestation - Resident Resident Name: RajeshGlennbarbara - ED Attending Attestation I have performed the following: I have examined & evaluated the patient, The case was reviewed & discussed with the resident, I agree w/resident's findings & plan, Exceptions are as noted - HPI HPI: 05/05/19 09:53 Reviewed Residents HPI - Physicial Exam PE: 05/05/19 09:53 Reviewed Residents PE - Medical Decision Making 53 years old with bee sting to left hand warm swollen and hot differential diagnosis includes ALLERGIC reaction versus cellulitis. No streaking no spread. We'll empirically treat with course of Augmentin as well as recommend rest ice elevation and Benadryl Patient return to ED for any severe worsening symptoms or for any concerns. Findings, the need for follow-up and strict return instructions discussed patient.
== END 2019-05-05 09:08 | disposition home or self-care (01) ==
LOC: JER 07:52
DX: R21 Rash and other nonspecific skin eruption (principal); M79.89 Other specified soft tissue disorders; L71.9 Rosacea, unspecified; Z86.73 Personal history of transient ischemic attack (TIA), and cerebral infarction without residual deficits
CPT/HCPCS: 99281-25

== ENCOUNTER 2020-05-26 08:27 | Emergency (ER) | payer BC ==
[2020-05-26 08:34] VITALS: BP 143/89; PULSE 71; TEMP 98.5; BMI 27.2
--- NOTE | 2020-05-26 08:42 | PDOC ---
History of Present Illness - General Chief Complaint: Lightheaded Stated Complaint: Lightheaded Time Seen by Provider: 05/26/20 08:40 History Source: Patient Exam Limitations: No Limitations - History of Present Illness Initial Comments: 05/26/20 08:42 PCP: None Cards: Dr. Wyatt HPI: 54yo M pmh HLD. rosacea, TIA (facial droop, L sided numbness at onset), ?afib (no AC), daily ETOH, presenting with several months of intermittent sensation of lightheadedness. Patient was evaluated at [facility] on 05/20/2020 for an episode of lightheadedness while driving and was told to present to the ED for head CT and blood work, but decided not to go. He also endorses chest pain for several years that is worse with deep breathing and is felt at his sternum and in his back. Denies fever, chills, focal weakness / numbness / tingling, shortness of breath, chest tightness, edema. Patient states that he has not had an episode of lightheadedness again since 05/20/2020 but has been increasingly anxious about the possibility and now feels he is "a wreck any time [he] gets in the car" due to nervousness. Concerning for former heavy smoker (quit 25 years ago), daily long-distance experienced truck driver, pleuritic chest pain, age >50, prior episode of unilateral LE swelling with unclear outcome. Allergies: NKDA Meds: Lisinopril PMH: As above SHx: Denies tobacco and rec drugs. With daily alcohol use Past History - Travel History Traveled outside of the country in the last 30 days: No Close contact w/someone who was outside of country & ill: No - Medical History Allergies/Adverse Reactions: Allergies Allergy/AdvReac Type Severity Reaction Status Date / Time No Known Allergies Allergy Verified 05/05/19 08:00 Home Medications: Ambulatory Orders Amox-Tr/K Cl [Augmentin - 875Mg Tablet] 1 tab PO BID #13 tablet 05/05/19 Diphenhydramine HCl [Benadryl -] 25 mg PO Q6H #21 capsule 05/05/19 Asthma: No CVA: Yes COPD: No Diabetes: No HTN: Yes - Surgical History Abdominal Surgery: Yes Appendectomy: Yes - Immunization History Td Vaccination: Yes TDAP Vaccination: Yes Immunization Up to Date: Yes - Psycho-Social/Smoking History Smoking Status: Yes Smoking History: Never smoked Have you smoked in the past 12 months: No Number of Cigarettes Smoked Daily: 0 If you are a former smoker, when did you quit?: 26 YEARS AGO Information on smoking cessation initiated: No - Substance Abuse Hx (Audit-C & DAST Scrn) How often the patient has a drink containing alcohol: 2-4 times / month Number of drinks the patient has on a typical day: 1 or 2 How often the patient has six or more drinks on one occasion: Less than monthly Score: In Men: 4 or > Positive; In Women: 3 or > Positive: 3 Screen Result (Pos requires Nsg. Audit-10AR): Negative In the last yr the pt used illegal drug/Rx for NonMed reason: No Score: Yes response is considered Positive: 0 Screen Result (Positive result requires Nsg. DAST-10): Negative Review of Systems - Review of Systems Able to Perform ROS?: Yes Is the patient limited [place] Islander proficient: Yes Constitutional: No: Chills, Fever, Weakness HEENTM: No: Recent change in vision, Nose Congestion, Throat Pain Respiratory: No: Cough, Shortness of Breath, Wheezing, Hemoptysis Cardiac (ROS): Yes: See HPI, Chest Pain, Irregular Heart Rate. No: Edema, Lightheadedness, Palpitations, Syncope, Chest Tightness ABD/GI: No: Abdominal Distended, Constipated, Diarrhea, Nausea, Poor Appetite, Poor Fluid Intake, Vomiting : No: Burning, Dysuria, Frequency Musculoskeletal: No: Muscle Pain, Muscle Weakness Integumentary: No: Pruritus, Rash Neurological: No: Headache, Numbness, Tingling, Weakness Psychiatric: Yes: Anxiety, Stressors Endocrine: No: Increased Thirst, Increased Urine, Change in Weight Hematologic/Lymphatic: No: Anemia, Blood Clots, Easy Bleeding All Other Systems: Reviewed and Negative *Physical Exam - Vital Signs Last Vital Signs Temp Pulse Resp BP Pulse Ox 98.5 F 71 16 143/89 99 05/26/20 08:31 05/26/20 08:31 05/26/20 08:31 05/26/20 08:31 05/26/20 08:31 - Physical Exam 05/26/20 09:15 Vitals reviewed, hypertensive, normal HR, normal sat, normal RR GEN: Well appearing, appears stated age, NAD, comfortable. AAOx3. HEENT: NCAT, EOMI, PERRL. Sclera anicteric, non-injected. No facial asymmetry. Moist mucous membranes. Normal voice. Trachea midline. CV: RRR, S1/S2, no murmurs / rubs / gallops appreciated. LUNG: CTABL, normal work of breathing. No wheezes, rales, rhonchi. No cough. Speaking full sentences. GI: Soft, NTND, +BS, no guarding, no rebound. No masses. EXTREMITIES: 2+ distal pulses. No clubbing / cyanosis / edema. No gross deformity in any extremity. SKIN: Warm, dry, no rashes appreciated, non-jaundiced. PSYCH: Normal mood and affect. Cooperative and appropriate. NEURO: CN grossly intact. Moving all extremities well. Normal strength and sensation grossly. ED Treatment Course - LABORATORY CBC & Chemistry Diagram: 05/26/20 08:57 05/26/20 08:57 Medical Decision Making - Medical Decision Making 05/26/20 09:06 54yo M pmh HLD. rosacea, TIA (facial droop, L sided numbness at onset), ?afib (no AC), daily ETOH, presenting with several months of intermittent sensation of lightheadedness. Most concerning for r/o PE, TIA / stroke in patient with h/o afib without anticoagulation or rate control. Poor follow up, concerning for - CBC, CMP, Cardiac Profile - EKG, CXR - NCHCT 05/26/20 11:30 - Labs unremarkable - CTA without evidence of acute PE 05/26/20 12:11 Patient requested to leave AMA. Patient is determined to be of sound mind and reasoning. The patient fully understands the care they are refusing and the risks associated with leaving before complete medical evaluation as explained by the medical team. The patient has been provided with a discharge summary, return precautions, and the reassurance that the Emergency Department will resume workup if the patient changes their mind. Immediate primary care follow up has been urged. Dispo: Patient left against medical advice Discharge - Discharge Information Problems reviewed: Yes Clinical Impression/Diagnosis: Episodic lightheadedness Condition: Stable Disposition: AGAINST MEDICAL ADVICE - Follow up/Referral - Patient Discharge Instructions Additional Instructions: You are leaving against medical advice and refusing evaluation and treatment of multiple episodes of feeling like you're going to pass out. It is essential that you follow up with your primary care physician within the next 1-2 days. Please follow up with your matrix plater within the next week for re-evaluation and continued care. Please return to the Emergency Department if you change your mind and wish to continue evaluation of your symptoms or if you experience any of the following: - worsening of your symptoms - chest pain - shortness of breath and/or difficulty breathing - seizure - changes in behavior - lightheadedness, and/or dizziness - severe abdominal pain - severe or bloody vomiting - bloody diarrhea - inability to eat or drink - anything that concerns you - Post Discharge Activity
[2020-05-26 09:21] LABS: HEMATOCRIT 41.6 % (35.4-49); HEMOGLOBIN 14.2 GM/dL (11.7-16.9); MCH 33.1 pg (25.7-33.7); MCHC 34.1 g/dl (32.0-35.9); MEAN CELL VOLUME 96.9 fl (80-96); MEAN PLT VOLUME 9.4 fl (7.5-11.1); PLATELET COUNT 224 K/MM3 (134-434); RDW 13.9 % (11.9-15.9); WHITE BLOOD COUNT 7.4 K/mm3 (4.0-10.0)
[2020-05-26 09:41] LABS: INR 0.91 (0.83-1.09); PROTHROMBIN TIME (PATIENT) 10.7 SEC (9.7-13.0)
--- NOTE | 2020-05-26 09:50 | EKG ---
Test Reason : Blood Pressure : / mmHG Vent. Rate : 072 BPM Atrial Rate : 072 BPM P-R Int : 178 ms QRS Dur : 106 ms QT Int : 378 ms P-R-T Axes : 046 026 008 degrees QTc Int : 413 ms NORMAL SINUS RHYTHM NORMAL ECG WHEN COMPARED WITH ECG OF 23-NOV-2016 09:51, NO SIGNIFICANT CHANGE WAS FOUND Confirmed by JANETTE KUMARI MD ([id number]) on 05/26/2020 9:49:42 AM Referred By: Confirmed By:JANETTE KUMARI MD
[2020-05-26 10:04] LABS: ALBUMIN 3.9 g/dl (3.4-5.0); ALK PHOS 85 U/L (45-117); ANION GAP 5 MMOL/L (8-16); BILIRUBIN,TOTAL 0.5 mg/dL (0.2-1); BLOOD UREA NITROGEN 11.6 mg/dL (7-18); CALCIUM 9.7 mg/dL (8.5-10.1); CHLORIDE 104 mmol/L (98-107); CO2 28 mmol/L (21-32); CREATININE 0.9 mg/dL (0.55-1.3); GLUCOSE,RANDOM 94 mg/dL (74-106); POTASSIUM 4.8 mmol/L (3.5-5.1); SGOT/AST 37 U/L (15-37); SGPT/ALT 47 U/L (13-61); SODIUM 138 mmol/L (136-145); TOT PROT 8.2 g/dl (6.4-8.2)
--- NOTE | 2020-05-26 12:45 | PDOC ---
Documentation entered by Marely Calderon SCRIBE, acting as scribe for Pablo Hodgson MD. Pablo Hodgson MD: This documentation has been prepared by the balajiibe, Marely Calderon SCRIBE, under my direction and personally reviewed by me in its entirety. I confirm that the documentation accurately reflects all work, treatment, procedures, and medical decision making performed by me. Attending Attestation - Resident Resident Name: David Hurst - ED Attending Attestation I have performed the following: I have examined & evaluated the patient, The case was reviewed & discussed with the resident, I agree w/resident's findings & plan, Exceptions are as noted - HPI HPI: 05/26/20 10:13 The patient is a 54-year-old male with a past medical history significant for HLD, TIA, Afib (not on AC), daily alcohol use who presents to the emergency department lightheadedness, anxiety, and chest pain. The patient presents with several months of lightheadedness, was seen at [facility] on 05/20 for the symptoms, and recommended to follow up at the ED for blood work and CT head, however, the patient was unable to come to the ED. The patient reports since the visit, he has been having episodes of lightheadedness while he is driving and has felt like he will pass out. This prompted him to come to the ED. The episodes last for aprox 30 seconds at a time and have required him to rack puller while driving. The patient reports additional complaints of pleuritic, mid- sternal/back chest pain since the last year. Denies fever or chills. Denies headache, focal weakness/numbness, N/V/D, diaphoresis, abd pain, urinary sxs, LE edema or calf pain. No recent travel. - Physicial Exam PE: 05/26/20 10:01 GENERAL: Awake, alert, and fully oriented, in no acute distress. Appears older than stated age. HEAD: No signs of trauma EYES: PERRLA, EOMI, sclera anicteric, conjunctiva clear ENT: Auricles normal inspection, hearing grossly normal, nares patent, oropharynx clear without exudates. Moist mucosa NECK: Normal ROM, supple, no lymphadenopathy, JVD, or masses LUNGS: Breath sounds equal, clear to auscultation bilaterally. No wheezes, and no crackles HEART: Regular rate and rhythm, normal S1 and S2, no murmurs, rubs or gallops ABDOMEN: Soft, nontender, normoactive bowel sounds. No guarding, no rebound. No masses EXTREMITIES: Normal range of motion, no edema. No clubbing or cyanosis. No cords, erythema, or tenderness BACK: No midline spinal tenderness in cervical/thoracic/lumbar region NEUROLOGICAL: Normal speech, cranial nerves intact, negative pronator drift, 5/5 strength in all 4 extremities, normal sensation to light touch in all 4 extremities, normal cerebellar exam, normal gait SKIN: Warm, Dry, normal turgor, no rashes or lesions noted. - Medical Decision Making 05/26/20 12:35 54-year-old male with multiple cardiac risk factors presents to the emergency department with episodes of chest pain and lightheadedness as well as presyncope. Vitals within normal limits. Exam unremarkable. Labs are not revealing of any pathology, chest x-ray is clear as well. In light of pleuritic chest pain since this morning, a CTA was obtained to rule out PE and was negative for any acute pathology. Pt found to have stable lung nodules that he was notified of and advised to f/u with PMD for rpt imaging. Report provided. Given presyncopal episodes, there was a concern for intermittent cardiac arrhythmia that was possible etiology of patient's and a telemetry observation admission was recommended to the patient. He states he cannot stay in the hospital because he has many pets at home that he needs to go and take care of. The patient is clinically sober, free from distracting injury, appears to have intact insight and judgment and reason and in my opinion has the capacity to make decisions. The patient presents with lightheadedness, CP, and presyncope. I have explained that I am concerned that this may represent cardiac arrhythmia, a heart attack, or a stroke; they have verbalized an understanding of my concerns. I have told the patient that while their labs and CT scans were normal, they could still have cardiac arrhythmia, a heart attack, or a stroke. I have discussed the need for admission and cardiac monitoring to get more information about potential causes of the patients symptoms. I have told the patient that if they leave and have the same sxs, they could get much worse, could become critically ill, and could possibly become disabled or . I have offered to give the patient more pain medication. I have asked them to stay in the hospital for serial exams. The patient is not willing to undergo a admission. He is unwilling to stay overnight for monitoring. He is refusing any further care and is leaving against medical advice. I am unable to convince the patient to stay, I have asked them to return as soon as possible to complete their evaluation. I have spoken with his veneer jointer Dr. Wyatt who agrees with need for admission but recommends follow up in the office tomorrow with him if he prefers. This has been communicated to the patient who states he will see Dr. Wyatt as an outpt. I have answered all of his questions. Heart Score/ECG Review #1 05/26/20 12:43 Twelve-lead EKG was performed and reviewed by me. Normal sinus rhythm, rate 72. Normal axis and intervals. No ST elevations. Isolated T wave inversion in lead III. Discharge - Discharge Information Problems reviewed: Yes Clinical Impression/Diagnosis: Episodic lightheadedness, Chest pain, Pre-syncope Condition: Unchanged/Unknown Disposition: AGAINST MEDICAL ADVICE - Follow up/Referral - Patient Discharge Instructions Additional Instructions: You are leaving against medical advice and refusing evaluation and treatment of multiple episodes of feeling like you're going to pass out. It is essential that you follow up with your primary care physician within the next 1-2 days. Please follow up with your veneer jointer Dr. Wyatt tomorrow as discussed. Please return to the Emergency Department if you change your mind and wish to continue evaluation of your symptoms or if you experience any of the following: - worsening of your symptoms - chest pain - shortness of breath and/or difficulty breathing - seizure - changes in behavior - lightheadedness, and/or dizziness - severe abdominal pain - severe or bloody vomiting - bloody diarrhea - inability to eat or drink - anything that concerns you - Post Discharge Activity
== END 2020-05-26 12:29 | disposition left against medical advice (07) ==
LOC: JER 08:27
DX: R42 Dizziness and giddiness (principal); R07.9 Chest pain, unspecified; R55 Syncope and collapse
CPT/HCPCS: 36415; 70450-TC; 71046-TC-FY; 71275-TC; 80053; 82550; 84484; 85027; 85610; 93005; 93010; 99285-25; Q9967

== ENCOUNTER 2020-08-10 15:31 | Emergency (ER) | payer OTHER, BC ==
[2020-08-10] MEDS ORDERED: LIDOCAINE 5% TOPICAL PATCH TP ONE (16:20)
[2020-08-10] MEDS ORDERED: KETOROLAC TROMETHAMINE 30 MG/1 ML VIAL IM ONE (16:20)
[2020-08-10] MEDS ORDERED: LIDOCAINE 5% TOPICAL PATCH ONE (16:59)
[2020-08-10] MEDS ORDERED: KETOROLAC TROMETHAMINE 30 MG/1 ML VIAL ONE (16:59)
[2020-08-10 17:27] VITALS: TEMP 98.5; BMI 38.0
[2020-08-10 17:54] VITALS: BP 132/89; PULSE 97
[2020-08-11] MEDS ORDERED: LIDOCAINE PATCH REMOVAL MC SCH (05:00)
== END 2020-08-10 17:58 | disposition home or self-care (01) ==
LOC: JER 15:31
PROC: 3E0233Z Introduction of Anti-inflammatory into Muscle, Percutaneous Approach (ICD-10-PCS; principal; 2020-08-10)
DX: M54.16 Radiculopathy, lumbar region (principal)
CPT/HCPCS: 72100-TC-FY; 99284-25

== ENCOUNTER 2021-05-12 09:13 | Emergency (ER) | payer BC, OTHER ==
[2021-05-12 09:21] VITALS: TEMP 98.5; BMI 27.2
[2021-05-12] MEDS ORDERED: dilTIAZem HCL 50 MG/10 ML - 10 ML VIAL IVPUSH ONE (10:23)
[2021-05-12 10:28] LABS: INR 0.93 (0.83-1.09); PROTHROMBIN TIME (PATIENT) 11.3 SEC (9.7-13.0)
[2021-05-12 10:29] LABS: BASO % 0.6 % (0-2.0); EOS % 0.2 % (0-4.5); HEMATOCRIT 40.2 % (35.4-49); HEMOGLOBIN 13.9 GM/dL (11.7-16.9); LYMPH % 16.9 % (8-40); MCH 33.5 pg (25.7-33.7); MCHC 34.5 g/dl (32.0-35.9); MEAN CELL VOLUME 97.2 fl (80-96); MEAN PLT VOLUME 9.4 fl (7.5-11.1); NEUT % 70.3 % (42.8-82.8); PLATELET COUNT 234 10^3/uL (134-434); RBC 4.14 M/mm3 (4.00-5.60); RDW 13.9 % (11.9-15.9); WHITE BLOOD COUNT 8.2 K/mm3 (4.0-10.0)
[2021-05-12 10:30] LABS: ACTIVATED PTT 29.4 SECONDS (25.2-36.5)
[2021-05-12] MEDS ORDERED: dilTIAZem HCL 125 MG/25 ML - 25 ML VIAL ONE (10:32)
[2021-05-12 10:49] LABS: CHLORIDE 105 mmol/L (98-107); SODIUM 136 mmol/L (136-145)
[2021-05-12 10:51] LABS: ALBUMIN 3.6 g/dl (3.4-5.0); BLOOD UREA NITROGEN 10.1 mg/dL (7-18); CALCIUM 9.2 mg/dL (8.5-10.1); CO2 29 mmol/L (21-32); GLUCOSE,RANDOM 125 mg/dL (74-106)
[2021-05-12 10:54] LABS: CREATININE 0.9 mg/dL (0.55-1.3); SGOT/AST 90 U/L (15-37); SGPT/ALT 80 U/L (13-61)
[2021-05-12 10:56] LABS: BILIRUBIN,TOTAL 0.7 mg/dL (0.2-1); TOT PROT 8.1 g/dl (6.4-8.2)
[2021-05-12 10:57] LABS: ALK PHOS 82 U/L (45-117)
[2021-05-12] MEDS ORDERED: METOPROLOL TARTRATE 25 MG TABLET (FP) PO SCH (11:15)
[2021-05-12 11:25] LABS: ANION GAP 2 MMOL/L (8-16)
[2021-05-12] MEDS ORDERED: METOPROLOL TARTRATE 25 MG TABLET (FP) ONE (12:46)
[2021-05-12 13:33] VITALS: BP 138/81; PULSE 110
[2021-05-12 16:02] LABS: CHLORIDE 103 mmol/L (98-107); SODIUM 138 mmol/L (136-145)
[2021-05-12 16:04] LABS: CALCIUM 9.5 mg/dL (8.5-10.1)
[2021-05-12 16:05] LABS: ALBUMIN 3.8 g/dl (3.4-5.0); ANION GAP 4 MMOL/L (8-16); BLOOD UREA NITROGEN 12.7 mg/dL (7-18); CO2 31 mmol/L (21-32); GLUCOSE,RANDOM 100 mg/dL (74-106)
[2021-05-12 16:08] LABS: CHOLESTEROL 261 mg/dL (50-200); SGOT/AST 58 U/L (15-37); SGPT/ALT 76 U/L (13-61); TRIGLYCERIDES 219 mg/dL (0-150)
[2021-05-12 16:09] LABS: BILIRUBIN,TOTAL 0.4 mg/dL (0.2-1); LDL CHOLESTEROL (ONLY SJRH) 126 mg/dL (5-100); TOT PROT 7.8 g/dl (6.4-8.2)
[2021-05-12 16:10] LABS: HDL CHOLESTEROL 99 mg/dL (40-60)
[2021-05-12 16:11] LABS: ALK PHOS 103 U/L (45-117)
== END 2021-05-12 16:19 | disposition left against medical advice (07) ==
LOC: JER 09:13
PROC: 3E033NZ Introduction of Analgesics, Hypnotics, Sedatives into Peripheral Vein, Percutaneous Approach (ICD-10-PCS; principal; 2021-05-12)
DX: R20.2 Paresthesia of skin (principal)
CPT/HCPCS: 36415; 70450-TC; 70496-TC; 70498-TC; 71045-TC-FY; 80053; 80061; 82550; 82553; 84443; 84484; 85025; 85610; 85730; 93005; 93010; 93306-TC; 93880-TC; 99285-25; C9803; Q9967; U0003; U0005